=== PATIENT | male | born 1950 | race Two or more races ===

== ENCOUNTER 2018-11-10 14:42 | Inpatient (IN) | payer MEDICARE, BC ==
[~2018-11-10] VITALS: Ht 175.3 cm; Wt 99.8 kg
--- NOTE | 2018-11-10 14:45 | NUR ---
AAOX3, BIBRA 89 FROM HOME C/O NAUSEA, VOMITING AND DIARRHEA SINCE MORNING. RR IS EVEN AND UNLABORED WITH NAD NOTED. SKIN IS WARM AND DRY. AWAITING MD FOR EVAL.
[2018-11-10] MEDS ORDERED: IV NS 0.9% 1,000 ML BAG IV ONE (15:00)
[2018-11-10] MEDS ORDERED: ONDANSETRON HCL/PF 4 MG/2 ML VIAL IVP ONE (15:00)
[2018-11-10] MEDS ORDERED: ONDANSETRON HCL/PF 4 MG/2 ML VIAL ONE (15:09)
[2018-11-10 15:11] LABS: BASOPHILS # (AUTO) 0.1 /CMM (0.0-0.2); BASOPHILS % (AUTO) 0.6 % (0.0-2.0); EOSINOPHILS % (AUTO) 0.4 % (0.0-6.0); HEMATOCRIT 34 % (39-51); LYMPHOCYTES # (AUTO) 1.2 /CMM (0.8-4.8); LYMPHOCYTES % (AUTO) 10.2 % (20.0-44.0); MEAN CORPUSCULAR HGB CONC 32 g/dl (31.0-36.0); MEAN CORPUSCULAR VOLUME 86 fL (80-96); MONOCYTES # (AUTO) 0.4 /CMM (0.1-1.30); MONOCYTES % (AUTO) 3.6 % (2.0-12.0); NEUTROPHILS # (AUTO) 10.2 /CMM (1.8-8.9); NEUTROPHILS % (AUTO) 85.2 % (43.0-81.0); PLATELET COUNT (AUTO) 216 /CMM (150-450); RED BLOOD CELL COUNT(AUTO) 3.95 MIL/uL (4.5-6.0)
[2018-11-10 15:19] LABS: CALCIUM, SERUM 9.3 mg/dL (8.5-10.1); CREATININE 2.4 mg/dL (0.6-1.3); POTASSIUM 4.2 mmol/L (3.5-5.1)
[2018-11-10 15:24] LABS: BILIRUBIN,DIRECT 0.2 mg/dL (0.0-0.2); BILIRUBIN,TOTAL 0.6 mg/dL (0.2-1.0); TOTAL PROTEIN, SERUM 8.5 g/dL (6.4-8.2)
[2018-11-10] MEDS ORDERED: ASPIRIN 81 MG TAB.CHEW PO ONE (17:00)
[2018-11-10] MEDS ORDERED: ASPIRIN 81 MG TAB.CHEW ONE (17:00)
[2018-11-10] MEDS ORDERED: DULA1.5P SQ (17:21)
[2018-11-10] MEDS ORDERED: ALLO100T PO (17:21)
[2018-11-10] MEDS ORDERED: APIX5TAB PO (17:21)
[2018-11-10] MEDS ORDERED: ASPI-1152 PO (17:21)
[2018-11-10] MEDS ORDERED: SERT100T PO (17:21)
[2018-11-10] MEDS ORDERED: LISI-607 PO (17:21)
[2018-11-10] MEDS ORDERED: URSO250T11 PO (17:21)
[2018-11-10] MEDS ORDERED: AMLO10TA7 PO (17:23)
[2018-11-10] MEDS ORDERED: FURO80TA3 PO (17:23)
--- NOTE | 2018-11-10 17:51 | NUR ---
Pt is assigned to [facility] rm#: [id number], DX: Chest pain / Abdominal Pain, and accepting: Geovany Ferreira DNP
--- NOTE | 2018-11-10 17:51 | NUR ---
URINE COLLECTED AND SENT TO LAB.
[2018-11-10 17:56] LABS: APPEARANCE,URINE Clear (CLEAR); BILIRUBIN,URINE Negative (NEGATIVE); BLOOD, URINE Trace-lysed Ery/uL (NEGATIVE); COLOR,URINE Yellow (YELLOW); KETONES,URINE Negative (NEGATIVE); LEUKOCYTE ESTERASE ,URINE Negative (NEGATIVE); NITRITE, URINE Negative (NEGATIVE); PH,URINE 5.5 (5.0-8.0); PROTEIN,URINE 100 mg/dl (NEGATIVE); UGLUCOSE 100 MG/DL mg/dL (NEGATIVE); UROBILINOGEN,URINE 0.2 EU/dL (0.2)
[2018-11-10 18:17] LABS: BACTERIA,URINE Rare /HPF (None Seen); RBC,URINE 0-2 /HPF (0-2); SQUAMOUS EPITHELIAL CELL,UR Few /HPF (None Seen); WBC,URINE 0-2 /HPF (0-3)
--- NOTE | 2018-11-10 18:27 | NUR ---
CALLED MED SURG AND SPOKE TO GALLO MENDEZ FOR KEISHA.
[2018-11-10] MEDS ORDERED: DEXTROSE 50%-WATER 50 ML DISP.SYRIN IV PRN (18:30)
[2018-11-10] MEDS ORDERED: HYDROCODONE/APAP 5/325MG 1 EACH TABLET PO PRN (18:30)
[2018-11-10] MEDS ORDERED: INSULIN REGULAR, HUMAN 100 UNIT/ML 3 ML VIAL SQ PRN (18:30)
[2018-11-10] MEDS ORDERED: MAG HYDROX/AL HYDROX/SIMETH 30 ML UDC PO PRN (18:30)
[2018-11-10] MEDS ORDERED: MAGNESIUM HYDROXIDE 30 ML UDC PO PRN (18:30)
[2018-11-10] MEDS ORDERED: ZOLPIDEM TARTRATE 5 MG TABLET PO PRN (18:30)
[2018-11-10] MEDS ORDERED: Z GUARD REMEDY 2 OZ OINT TP PRN (18:30)
[2018-11-10] MEDS ORDERED: ACETAMINOPHEN 325 MG TABLET PO PRN (18:30)
--- NOTE | 2018-11-10 18:51 | NUR ---
TOOK PATIENT TO MED SURG VIA ACLS PROTOCOL IN NO APPARENT DISTRESS NOTED. KARRI MENDEZ ON SITE AND RECEIVED THE PATIENT FOR KEISHA.
[2018-11-10 18:55] VITALS: BP 158/72
--- NOTE | 2018-11-10 18:55 | NUR ---
BOOM STICK MANSOLID PLASTERER NOTE RECEIVED PT FROM ER [facility]IA [employer]. PT IS FROM HOME WITH C/O OF NAUSEA AND ABD PAIN X1 DAY, DX OF CHOLELITHIASIS. PT IS ALERT AND ORIENTED X4, IS AT THE BEDSIDE. CURRENT VS ARE BP: 158/72, HR: 55, R: 22, OX: 99%, T: 97.8. PT RATES ABD PAIN 4/10 AT THIS TIME AND TOLERABLE. PT PLACED ON GREENSKEEPER AND IS A FIB, HR 58. R AC #18G IS PATENT, CLEAN, DRY AND INACT. ADMISSION ORDERS RECEIVED, WILL DEFER ADMISSION TO WEAVER HAND RN PER PROTOCOL. UNIT ORIENTATION PROVIDED TO PT AND INCLUDING USE OF CALL LIGHT AND TO NOT GET OUT OF BED WITHOUT ASSISTANCE, BOTH VERBALIZED AGREEMENT AND UNDERSTANDING. NPO EXCEPT MEDICATIONS STATUS MAINTAINED. WILL ENDORSE TO WEAVER HAND RN FOR CONTINUITY OF CARE.
--- NOTE | 2018-11-10 19:30 | NUR ---
STRETCHER HELPER OPENING NOTES Received patient awake, A/O x4, on Neves's position on bed, at bedside. With patent peripheral IV line RAC G#18, SL. On RA, no SOB/respiratory distress noted at this time. On tele monitor, Afib - 60bpm, BP 154/71mmHg. With complaints of nausea at this time. no vomiting noted. Offered available medication ordered for Nausea - patient and agreed to have Zofran. Administered Zofran as ordered. Will continue to monitor accordingly.
[2018-11-10] MEDS: ONDANSETRON HCL/PF 4 MG/2 ML VIAL IVP PRN (19:50)
[2018-11-10 20:00] VITALS: BP 154/71
--- NOTE | 2018-11-10 20:20 | NUR ---
TREE WARDEN NOTES Patient complaint of thirst. Patient is NPO. Offered ice chips. Answered all inquiries of the patient and his with satisfaction. 2014 - left the unit at this time.
--- NOTE | 2018-11-10 21:09 | NUR ---
PROFESSOR OF [employer] NOTES Seen by ENEDELIA Ferreira. Patient's questions answered. No new orders at this time. For cardio consult with Dr. Veronica in AM.
[2018-11-10] MEDS: BLOOD SUGAR DIAGNOSTIC 1 EACH STRIP IN SCH (22:00)
[2018-11-11 01:00] VITALS: BP 152/83
--- NOTE | 2018-11-11 03:43 | NUR ---
BANQUET SUPERVISOR NOTES Patient compliant unable to go back to sleep and with SOB. RR - 20, O2 Sat 97%. Put on O2 @ 2LPM. Kept on Neves's position on bed. Will continue to monitor.
--- NOTE | 2018-11-11 03:52 | NUR ---
SWIFT TENDER NOTES Patient unable to sleep, noted walking on the hallway independently, on steady gait, no SOB noted. Patient on outside the room walking for about 5 minutes. Then back to the room sitting on bed.
[2018-11-11 04:00] VITALS: BP 163/93
[2018-11-11 04:15] LABS: BASOPHILS % (AUTO) 0.2 % (0.0-2.0); HEMATOCRIT 33 % (39-51); HEMOGLOBIN 10.8 g/dL (13.5-17.5); LYMPHOCYTES # (AUTO) 0.9 /CMM (0.8-4.8); LYMPHOCYTES % (AUTO) 10.3 % (20.0-44.0); MEAN CORPUSCULAR HGB CONC 33 g/dl (31.0-36.0); MEAN CORPUSCULAR VOLUME 86 fL (80-96); MONOCYTES # (AUTO) 0.4 /CMM (0.1-1.30); MONOCYTES % (AUTO) 4.3 % (2.0-12.0); NEUTROPHILS # (AUTO) 7.4 /CMM (1.8-8.9); NEUTROPHILS % (AUTO) 85.2 % (43.0-81.0); PLATELET COUNT (AUTO) 200 /CMM (150-450); RED BLOOD CELL COUNT(AUTO) 3.87 MIL/uL (4.5-6.0); WHITE BLOOD COUNT (AUTO) 8.7 K/uL (4.3-11.0)
[2018-11-11 04:18] LABS: CALCIUM, SERUM 9.1 mg/dL (8.5-10.1); CREATININE 2.2 mg/dL (0.6-1.3); MAGNESIUM 2.2 mg/dL (1.8-2.4); PHOSPHORUS 3.5 mg/dL (2.5-4.9); POTASSIUM 4.2 mmol/L (3.5-5.1)
[2018-11-11] MEDS: ONDANSETRON HCL/PF 4 MG/2 ML VIAL IVP PRN ×2 (04:27→05:01)
--- NOTE | 2018-11-11 04:27 | NUR ---
CRIME SCENE PHOTOGRAPHER NOTES Patient noted nauseous and vomiting. Offered Zofran. RAC IV access noted not patent and infiltrated. Reinserted peripheral IV line L forearm G#22, established blood return after 2 attempts. Administered Zofran, then SL. Will continue to monitor.
[2018-11-11 05:06] LABS: THYROID STIMULATING HORMONE 0.451 uIU/mL (0.358-3.74)
[2018-11-11] MEDS: BLOOD SUGAR DIAGNOSTIC 1 EACH STRIP IN SCH ×2 (06:52→11:37)
--- NOTE | 2018-11-11 06:55 | NUR ---
STILL OPERATOR HELPER CLOSING NOTES Patient asleep on Neves's position. Nauseous most of the time throughout the shift, vomiting relieved with Zofran. Per patient he didn't have a good sleep all throughout the shift. Still on NPO except meds. All needs attended. On tele monitor Afib - 61. Kept bed low and locked, siderails x2 up. Call light at bedside. Endorsed to the next shift.
[2018-11-11 08:00] VITALS: BP 132/115
[2018-11-11] MEDS ORDERED: ASPIRIN EC 81 MG TABLET.DR PO SCH (09:00)
[2018-11-11] MEDS ORDERED: URSODIOL 300 MG CAPSULE PO SCH (09:00)
[2018-11-11] MEDS ORDERED: SERTRALINE HCL 50 MG TABLET PO SCH (09:00)
[2018-11-11] MEDS ORDERED: APIXABAN 5 MG TABLET PO SCH (09:00)
[2018-11-11] MEDS ORDERED: PANTOPRAZOLE 40 MG VIAL IV SCH (09:00)
[2018-11-11] MEDS ORDERED: FUROSEMIDE 80 MG TABLET PO SCH (09:00)
[2018-11-11] MEDS ORDERED: AMLODIPINE BESYLATE 10 MG TABLET PO SCH (09:00)
[2018-11-11] MEDS: ALLOPURINOL 100 MG TABLET PO SCH ×2 (10:23→13:00)
[2018-11-11 10:24] VITALS: BP 115/60
--- NOTE | 2018-11-11 11:41 | NUR ---
TELE. RN. PT REFUSED INSULIN COVERAGE, PT AND STATE THEY DON'T NORMALLY USE INSULIN AND WILL MANAGE BGL BY DIET FOR REST OF DAY-.
--- NOTE | 2018-11-11 14:30 | NUR ---
REGISTERED PHARMACY TECHNICIAN PT. WAS DISCHARGED IN STABLE CONDITION. DISCHARGE INSTRUCTIONS GIVEN WITH EDUCATION, PT. SIGNED DISCHARGE PAPERS. BELONGINGS LIST WAS CHECKED AND SIGNED. ID BAND AND IV WAS REMOVED. PT. LEFT BY PRIVATE CAR ALONG SIDE . PT. LEFT WITH DISCHARGE PACKET, AND ALL QUESTIONS ANSWERED.
== END 2018-11-11 14:30 | disposition home or self-care (01) | DRG 280 ==
LOC: ER 14:49 → TELE 18:12
PROVIDERS: ADMIT Hospitalist; ATTEND Hospitalist
DX: I21.A1 Myocardial infarction type 2 (principal); N17.0 Acute kidney failure with tubular necrosis; I13.0 Hypertensive heart and chronic kidney disease with heart failure and stage 1 through stage 4 chronic kidney disease, or unspecified chronic kidney disease; N18.4 Chronic kidney disease, stage 4 (severe); E11.22 Type 2 diabetes mellitus with diabetic chronic kidney disease; E11.65 Type 2 diabetes mellitus with hyperglycemia; I50.9 Heart failure, unspecified; N28.1 Cyst of kidney, acquired; N18.9 Chronic kidney disease, unspecified; K80.20 Calculus of gallbladder without cholecystitis without obstruction; E11.21 Type 2 diabetes mellitus with diabetic nephropathy; E78.5 Hyperlipidemia, unspecified; F17.200 Nicotine dependence, unspecified, uncomplicated; I25.10 Atherosclerotic heart disease of native coronary artery without angina pectoris; I48.2 Chronic atrial fibrillation; Z79.01 Long term (current) use of anticoagulants; D63.8 Anemia in other chronic diseases classified elsewhere; Z98.61 Coronary angioplasty status; E11.51 Type 2 diabetes mellitus with diabetic peripheral angiopathy without gangrene; Z79.82 Long term (current) use of aspirin; Z71.6 Tobacco abuse counseling; Z79.4 Long term (current) use of insulin
CPT/HCPCS: 36415; 71045-TC; 76705-TC; 80048-TC; 80061-TC; 80076-TC; 81000-TC; 82962-TC; 83690-TC; 83735-TC; 83880; 84100-TC; 84443-TC; 84484-TC; 85025-TC; 85730-TC; 87081-TC; 93307-TC; G0378; J1815; J2405; J7030